=== PATIENT | female | born 2000 | race Two or more races ===

== ENCOUNTER 2025-04-25 18:15 | Emergency (ER) | payer MEDICAID, SELFPAY ==
[2025-04-25 18:16] VITALS: BMI 34.7
[2025-04-25 19:45] VITALS: BP 117/74; PULSE 98; RESP 16; TEMP 36.9; O2SAT 99
--- NOTE | 2025-04-25 19:48 | EDRME_ITS ---
Rapid Medical Screening Exam RME Arrival date/time: 04/25/25 18:15 Chief Complaint: Abdominal Pain Time Seen by Provider: 04/25/25 19:39 Vital signs: Vital Signs Temperature 98.4 F 04/25/25 19:45 Pulse Rate 98 04/25/25 19:45 Respiratory Rate 16 04/25/25 19:45 Blood Pressure 117/74 04/25/25 19:45 Pulse Oximetry (%) 99 04/25/25 19:45 Oxygen Delivery Method Room Air 04/25/25 19:45 Vital signs reviewed by provider: Yes RME Narrative: 24-year-old female presents to the ED with a complaint of pelvic pressure and pain as well as spotting of brown fluid that began today. She is 17 weeks . 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 She denies any dysuria or frequency. She denies any recent illness with fever, chills, cough, upper respiratory complaints, nausea or vomiting, diarrhea or constipation. I have greeted and performed a focused initial assessment of this patient. A comprehensive ED assessment and evaluation of the patient, analysis of all test results, and completion of the medical decision making process will be conducted by additional ED providers.
--- NOTE | 2025-04-25 19:50 | XR_ITS ---
Examination: Complete OB ultrasound greater than 14 weeks Date and time of exam: April 25, 2025 2013 hours INDICATIONS: Cramping, pelvic, vaginal bleeding today Findings: Viable intrauterine single fetus with single amniotic sac presentation breech Cardiac motion 158 BPM Placenta posterior grade 1 Umbilical cord insertion 3 vessel seen Amniotic fluid index adequate Cervix 3.8 cm Right ovary obscured by bowel gas Left ovary 4.6 cm. Composite estimated gestational age based on BPD, head circumference, abdominal circumference, femur length is 19 weeks 1 day Estimated weight 278 g. Survey of intracranial anatomy, spinal anatomy, abdominal anatomy, four-chamber heart performed with no abnormalities identified. Impression: Viable intrauterine gestation breech presentation Estimated gestational age is 19 weeks 1 day.
[2025-04-25 21:03] LABS: Collection Type, Urine Clean Catch
[2025-04-25 21:24] LABS: Bilirubin,Urine Negative (Negative); Blood,Urine Negative (Negative); Clarity,Urine Turbid (Clear/Hazy); Color,Urine Yellow (Lt Yel-Yel); Glucose, Urine Trace (Negative); Ketones,Urine Negative (Negative); Leukocyte Esterase,Urine Positive (Negative); Nitrite,Urine Negative (Negative); PH,Urine 6.5 (5.0-7.0); Protein,Urine Trace (Neg - Trace); RBC,Urine 5 /hpf (0-3); Specific Gravity,Urine 1.023 (1.001-1.035); Squamous Epithelial Cell,Urine 4 /hpf (0-5); WBC,Urine 13 /hpf (0-5)
[2025-04-25 21:25] LABS: Culture Indicated,Urine Yes
[2025-04-25 21:50] LABS: Basophils # (Auto) 0.1 Thou/mm3 (0.0-0.2); Basophils % (Auto) 1 % (0-2.5); Eosinophils % (Auto) 0 % (0-10); Hematocrit 41.1 % (36.0-46.0); Immature Granulocytes % (Auto) 0 % (0-0); Immature Granulocytes Auto 0.02 Thou/mm3 (0.00-0.00); Lymphocytes # (Auto) 2.1 Thou/mm3 (1.0-4.8); Lymphocytes % (Auto) 24 % (10-50); Mean Corpuscular HGB Conc 36.5 g/dl (31.0-37.0); Mean Corpuscular Hemoglobin 31.8 pg (25.0-35.0); Mean Corpuscular Volume 87 fL (80-100); Monocytes # (Auto) 0.5 Thou/mm3 (0.0-0.8); Monocytes % (Auto) 6 % (0-12); Neutrophils # (Auto) 6.2 Thou/mm3 (1.8-7.7); Neutrophils % (Auto) 69 % (37-80); Nucleated Red Blood Cell % 0 /100 WBC (0); Platelet Count 370 Thou/mm3 (140-440); RDW Standard Deviation 40.3 fL (36.4-46.3); Red Blood Count 4.72 Miln/mm3 (4.00-5.20); White Blood Count 8.9 Thou/mm3 (3.6-11.0)
[2025-04-25 22:10] LABS: Alanine Aminotransferase 20 U/L (10-49); Albumin, Serum 3.8 gm/dL (3.5-5.0); Albumin/Globulin Ratio 1.7 (1.2-2.2); Alkaline Phosphatase 57 U/L (46-116); Anion Gap 12 (7-16); BUN/Creatinine Ratio 17 Ratio (12-20); Bilirubin,Total 0.3 mg/dL (0.3-1.2); Blood Urea Nitrogen 10 mg/dL (9-23); Calcium 8.7 mg/dL (8.3-10.6); Calcium (Corrected) 8.9 mg/dL (8.5-10.1); Carbon Dioxide 23.7 mMol/L (20.0-31.0); Chloride 105 mMol/L (98-107); Creatinine (Component) 0.6 mg/dL (0.6-1.3); Estimated Creatinine Clearance 128.1 mL/min (>60); Globulin 2.2 gm/dL (2.3-3.5); Glucose 107 mg/dL (74-106); Osmolality,Calculated 280 (275-295); Potassium 3.6 mMol/L (3.4-5.1); Sodium 141 mMol/L (136-145); eGFR > 60 See Note
[2025-04-25 23:13] LABS: Beta HCG,Quantitative 17948 mIU/mL (<5.0)
--- NOTE | 2025-04-25 23:18 | PD.EDABDPN ---
ED Abdominal Pain RME/HPI General Chief Complaint: Abdominal Pain Stated complaint: ABD PAIN 17WKS PREG Time seen by provider: 04/25/25 19:39 Arrival date/time: 04/25/25 18:15 RME / HPI RME / HPI narrative: 24-year-old female presents to the ED with a complaint of pelvic pressure and pain as well as spotting of brown fluid that began today. She is 17 weeks . 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 She denies any dysuria or frequency. She denies any recent illness with fever, chills, cough, upper respiratory complaints, nausea or vomiting, diarrhea or constipation. I have greeted and performed a focused initial assessment of this patient. A comprehensive ED assessment and evaluation of the patient, analysis of all test results, and completion of the medical decision making process will be conducted by additional ED providers. Related Data Allergies Allergy/AdvReac Type Severity Reaction Status Date / Time No Known Allergies Allergy Verified 05/30/22 12:03 Review of Systems Review of Systems Systems Reviewed: All systems reviewed, normal except as documented Past Medical History Past Medical History CARDIAC: Negative Congestive Heart Failure RESPIRATORY: Negative Chronic Obstructive Pulmonary Disease (COPD) GENITOURINARY: Negative Renal Disease ENDOCRINE: Negative Diabetes Mellitus Type 1 or Diabetes Mellitus Type 2 Social History SMOKING STATUS: Never smoker ED Exam Narrative Physical exam: Alert and oriented 24-year-old female, no acute distress. Lungs are clear, regular rate and rhythm, abdomen is gravid (unable to determine fundal height), soft, mild lower pelvic tenderness, no CVA tenderness. Moves all extremities well. Course Course Course Narrative: CBC is normal, CMP is normal, urinalysis reveals turbid yellow urine with a specific gravity 1.023 with trace protein, trace glucose, negative nitrites, positive leukocyte esterase, 5 RBCs and 13 WBCs with no bacteria. OB ultrasound greater than 14 weeks reveals viable intrauterine gestation breech presentation. Estimated gestational age is 19 weeks 1 day, cardiac motion is 158. Amniotic fluid index adequate estimated weight 278 g. anatomy appears with no abnormalities. Orders Category Date Time Status US OB >= 14 weeks Fetus Stat Exams 04/25/25 19:50 Completed ABO/RH Type Stat Lab 04/25/25 20:51 Completed Beta HCG,Quantitative Stat Lab 04/25/25 20:51 Completed CBC Stat Lab 04/25/25 20:51 Completed CMP [Comprehensive Metabolic Panel] Stat Lab 04/25/25 20:51 Completed UA, C/S IF [Urinalysis, C/S if Indicated] Stat Lab 04/25/25 20:33 Completed Urine Culture Stat Lab 04/25/25 20:33 Received Vital Signs Vital signs: Vital Signs Temperature 98.4 F 04/25/25 19:45 Pulse Rate 98 04/25/25 19:45 Respiratory Rate 16 04/25/25 19:45 Blood Pressure 117/74 04/25/25 19:45 Pulse Oximetry (%) 99 04/25/25 19:45 Oxygen Delivery Method Room Air 04/25/25 19:45 Discharge Plan Plan Patient Disposition: HOME (Self Care) Discharge Disposition comment: Stable Prescriptions/Referrals Referrals: Luis Minor MD [Primary Care Provider] - In 1 week Problem List Clinical Impression: Threatened miscarriage Patient/Caregiver Discharge Instructions Education Materials: ED Possible Miscarriage ... Additional Instructions: Contact your [employer] BUSINESS ANALYST for [place] in the morning and schedule a follow-up appointment early this week. Return to the emergency department for any new or worsening symptoms. Print Language: Khmer Stand Alone Forms: Ivory Award Info., Patient Portal Info Letter PA/FLOR Supervising Physician ADRYAN/FLOR Supervising Physician: Dr. Reynolds
[2025-04-25 23:28] VITALS: BP 109/74; PULSE 64; RESP 17; RESP 18; TEMP 36.3; O2SAT 98
== END 2025-04-25 23:29 | disposition home or self-care (01) ==
PROVIDERS: Physician Assistant; Emergency Provider Emergency Medicine; PCP Family Medicine
DX: O20.0 Threatened abortion (principal); Z3A.19 19 weeks gestation of pregnancy
CPT/HCPCS: 36415; 76805; 80053; 81001; 84702; 85025; 86900; 86901; 87086; 99284

== ENCOUNTER 2025-08-24 03:24 | Observation (INO) | payer MEDICAID, SELFPAY ==
[2025-08-24] VITALS (22 sets, daily range): BP systolic 120; BP diastolic 81; PULSE 52–83; RESP 19–99; TEMP 37; O2SAT 94–100; BMI 38.7
[2025-08-24] MEDS: RINGERS LACTATED 1000 ML 1,000 ML 999 ML IV (04:06)
== END 2025-08-24 06:00 | disposition home or self-care (01) ==
PROVIDERS: Admitting Provider Specialist; Visit Provider Specialist
DX: O47.03 False labor before 37 completed weeks of gestation, third trimester (principal); O36.8130 Decreased fetal movements, third trimester, not applicable or unspecified; Z3A.36 36 weeks gestation of pregnancy
CPT/HCPCS: 59025; 59899; J7120

== ENCOUNTER 2025-08-31 17:03 | Observation (INO) | payer MEDICAID, SELFPAY ==
[2025-08-31 17:24] VITALS: BP 123/79; PULSE 74
[2025-08-31 17:42] VITALS: BP 123/79; PULSE 74; RESP 18; RESP 99; TEMP 36.8; BMI 35.5
[2025-08-31 17:53] VITALS: BP 122/83; PULSE 68
[2025-08-31 19:40] LABS: ROM Kit Exp Date# 04/44/28; ROM Kit Lot # 58106258; ROM Swab Mixed By: MARTB3; Rupture of Fetal Membranes Negative (Negative); Swb Mxed in Solvent 1 min? Yes
== END 2025-08-31 20:10 | disposition home or self-care (01) ==
PROVIDERS: Admitting Provider Specialist; Visit Provider Specialist
DX: O26.893 Other specified pregnancy related conditions, third trimester (principal); Z3A.37 37 weeks gestation of pregnancy; M54.50 Low back pain, unspecified
CPT/HCPCS: 59025; 59899; 84112

== ENCOUNTER 2025-09-01 22:49 | Observation (INO) | payer MEDICAID, SELFPAY ==
[2025-09-01] VITALS (11 sets, daily range): BP systolic 127; BP diastolic 87; PULSE 61–71; RESP 18–99; TEMP 37.1; O2SAT 98–100; BMI 36.7
[2025-09-02 00:01] VITALS: PULSE 62; O2SAT 100
[2025-09-02 00:06] VITALS: PULSE 64; O2SAT 99
[2025-09-02 00:11] VITALS: PULSE 62; O2SAT 100
[2025-09-02 00:16] VITALS: PULSE 60; O2SAT 100
[2025-09-02 00:21] VITALS: PULSE 59; O2SAT 99
== END 2025-09-02 00:37 | disposition home or self-care (01) ==
PROVIDERS: Admitting Provider Specialist; Visit Provider Specialist
DX: Z34.03 Encounter for supervision of normal first pregnancy, third trimester (principal); Z3A.37 37 weeks gestation of pregnancy
CPT/HCPCS: 59899

== ENCOUNTER 2025-09-02 16:55 | Inpatient (IN) | payer MEDICAID, SELFPAY ==
[2025-09-02] VITALS (78 sets, daily range): BP systolic 106–162; BP diastolic 63–122; PULSE 64–126; RESP 16–99; TEMP 36.7; O2SAT 90–100; BMI 35.9
[2025-09-02 18:46] LABS: Basophils # (Auto) 0.0 Thou/mm3 (0.0-0.2); Basophils % (Auto) 0 % (0-2.5); Eosinophils # (Auto) 0.0 Thou/mm3 (0.0-0.5); Eosinophils % (Auto) 0 % (0-10); Hematocrit 33.6 % (36.0-46.0); Hemoglobin 11.3 g/dL (12.0-16.0); Immature Granulocytes Auto 0.04 Thou/mm3 (0.00-0.00); Lymphocytes # (Auto) 1.4 Thou/mm3 (1.0-4.8); Lymphocytes % (Auto) 17 % (10-50); Mean Corpuscular HGB Conc 33.6 g/dl (31.0-37.0); Mean Corpuscular Hemoglobin 28.1 pg (25.0-35.0); Mean Corpuscular Volume 84 fL (80-100); Monocytes # (Auto) 0.3 Thou/mm3 (0.0-0.8); Monocytes % (Auto) 4 % (0-12); Neutrophils # (Auto) 6.9 Thou/mm3 (1.8-7.7); Neutrophils % (Auto) 79 % (37-80); Nucleated Red Blood Cell # 0.00 Thou/mm3 (0.00-0.00); Nucleated Red Blood Cell % 0 /100 WBC (0); Platelet Count 213 Thou/mm3 (140-440); RDW Standard Deviation 37.7 fL (36.4-46.3); Red Blood Count 4.02 Miln/mm3 (4.00-5.20); White Blood Count 8.7 Thou/mm3 (3.6-11.0)
--- NOTE | 2025-09-02 18:46 | PD.LDHP ---
Documentation for date of: 09/02/25 OB Labor/Induct. HPI History of Present Illness : 1 Para: 0 Term pregnancies: 0 pregnancies: 0 Living children: 0 History of Abortions: Spontaneous and Elective: 0 History of Vaginal deliveries: 0 History of sections: No History of : No LUCILA: 09/19/25 History of present illness: H and P dictated STAT in Nuance #9. History of Present Adequate Care: Yes Past Medical History Surgical History SURGICAL: Negative Section Meds Home Medications and Allergies Home Medications ?Medication ?Instructions ?Recorded ?Confirmed ?Type ferrous sulfate 325 mg (65 mg 325 mg PO DAILY 08/24/25 09/02/25 History iron) tablet vitamins with calcium 1 tab PO Q24H 08/24/25 09/02/25 History no.72-iron 27 mg-folic acid 1 mg tablet ( Plus (calcium carbonate)) Allergies Allergy/AdvReac Type Severity Reaction Status Date / Time No Known Allergies Allergy Verified 09/02/25 19:29 OB Exam Physical Exam Vital signs: Temp Pulse Resp BP Pulse Ox 98.0 F 105 H 17 127/87 H 100 09/02/25 17:59 09/02/25 17:59 09/02/25 17:59 09/02/25 17:59 09/02/25 18:35 OB Results Labs 09/02/25 18:00
[2025-09-02] MEDS: Ampicillin Inj 2,000 MG in SODIUM CHLORIDE 0.9% (POP) 100 ML 200 MG IV (20:00)
[2025-09-02 22:06] LABS: Syphilis Nonreactive (Nonreactive)
[2025-09-02] MEDS: ceFAZolin/D5W 2 GM IV 2 GM/100 ML BAG IV (23:06)
[2025-09-02] MEDS: FAMOTIDINE INJ 10 MG/ML VIAL 2 ML 20 MG IV (23:06)
--- NOTE | 2025-09-02 23:07 | PD.LDPN ---
Documentation for date of: 09/02/25 OB Labor Progress Note Pain Control Comments: Epidural Pelvic Exam Dilation (cm): 5 Effacement (%): 90 station: -1 Amniotic membrane status: Ruptured Contractions Monitor mode: External Contraction frequency: 5-8 Contraction intensity: Mild Status status: Category ll Comments: Recurrent severe variable and prolonged decelerations with minimal variability Assessment and Plan Comments: Delivery. Informed Consent was Obtained. Pt made aware of the risks, complications, alternatives and benefits of the proposed procedure and she agrees. History of Present Illness HPI Called by RN to evaluate tracing.
[2025-09-02] MEDS: METOCLOPRAMIDE INJ 5 MG/ML VIAL 2 ML 10 MG IVP (23:09)
[2025-09-02] MEDS: RINGERS LACTATED 1000 ML 1,000 ML 125 ML IV (23:11)
[2025-09-03] VITALS (18 sets, daily range): BP systolic 84–146; BP diastolic 70–87; PULSE 60–88; RESP 12–19; TEMP 36.8–37.2; O2SAT 97–100
[2025-09-03] MEDS: HYDROmorphone 1 MG/ML PCA SYRINGE 30ML 30 MG IV (01:59)
[2025-09-03 05:52] LABS: Basophils # (Auto) 0.0 Thou/mm3 (0.0-0.2); Basophils % (Auto) 0 % (0-2.5); Eosinophils # (Auto) 0.0 Thou/mm3 (0.0-0.5); Eosinophils % (Auto) 0 % (0-10); Hematocrit 28.8 % (36.0-46.0); Hemoglobin 9.6 g/dL (12.0-16.0); Immature Granulocytes Auto 0.04 Thou/mm3 (0.00-0.00); Lymphocytes # (Auto) 1.8 Thou/mm3 (1.0-4.8); Lymphocytes % (Auto) 14 % (10-50); Mean Corpuscular HGB Conc 33.3 g/dl (31.0-37.0); Mean Corpuscular Hemoglobin 28.2 pg (25.0-35.0); Mean Corpuscular Volume 85 fL (80-100); Monocytes # (Auto) 0.5 Thou/mm3 (0.0-0.8); Monocytes % (Auto) 4 % (0-12); Neutrophils # (Auto) 10.2 Thou/mm3 (1.8-7.7); Neutrophils % (Auto) 81 % (37-80); Nucleated Red Blood Cell # 0.00 Thou/mm3 (0.00-0.00); Nucleated Red Blood Cell % 0 /100 WBC (0); Platelet Count 188 Thou/mm3 (140-440); RDW Standard Deviation 38.5 fL (36.4-46.3); Red Blood Count 3.41 Miln/mm3 (4.00-5.20); White Blood Count 12.5 Thou/mm3 (3.6-11.0)
[2025-09-03] MEDS: DOCUSATE SOD 100 MG CAPSULE PO (08:44)
[2025-09-03] MEDS: ENOXAPARIN SOD INJ 40 MG/0.4 ML SYRINGE SC (08:44)
--- NOTE | 2025-09-03 09:10 | OBDSUM_ITS ---
Data ([facility]) Data Hx Section: No : 1 Term: 0 : 0 Livin Abortions: Spontaneous & Theraputic: 0 Delivery Data ([facility]) Labor Data Initiation of labor: Augmentation Induction/Augmentation Agent: None ROM date: 09/02/25 ROM time: 18:20 Amniotic membrane rupture type: Spontaneous Amniotic fluid description: Clear Delivery Data EDC: 09/19/25 EDC calculated by:: LMP/early US confirmation delivery date: 09/02/25 delivery time: 23:32 Gestational age (weeks): 37 Gestational age (days): 4 Placenta delivery date: 09/02/25 Placenta delivery time: 23:33 Delivered by: Geiling Delivery nurse: Rohini Fierro nurse: Danelle [employer] Test Engineer at delivery: No Delivery Method Delivery method: Low Transverse Presentation: Vertex position: OP Anesthesia Type Anesthesia Type: Spinal and Epidural Placenta Placenta delivery description: Manual Removal Cord blood sent to lab: Yes cord blood collection: Cord Blood Type, Arterial Cord Blood Gas and Venous Cord Blood Gas Episiotomy Episiotomy description: None EBL Estimated blood loss (ml): 500 Umbilical Cord cord description: 3 Vessels Complications Complications: None Data ([place]) [place] Data [place]'s gender: Male Identification band number: [id number] weight (gms): 5 lb 7.832 oz Weight (pounds): 5 lbs and 7.8 ozs length: 19.49 in 1 minute: 8 5 minutes: 9
--- NOTE | 2025-09-03 09:10 | ESOP_ITS ---
Operative Note - PUBLIC ADDRESS SERVICER Procedure Date of procedure: 09/02/25 Procedure Performed: Primary low-transverse section via Pfannenstiel skin incision Indication: Intrauterine at 37 weeks and 4 days Active labor Category 2 tracing trending toward category 3 Gestational diabetes mellitus class A1 Pre-Op diagnosis: Intrauterine at 37 weeks and 4 days Active labor Category 2 tracing trending toward category 3 Gestational diabetes mellitus class A1 Post-Op diagnosis: Intrauterine at 37 weeks and 4 days Active labor Category 2 tracing trending toward category 3 Gestational diabetes mellitus class A1 Anesthesia type: Spinal Procedure description: After proper informed consent was obtained and the patient was made aware of the risks, complications, alternatives and benefits of the proposed procedure she w as taken to the operating room where she underwent induction of spinal anesthesia. She was prepped and draped in the usual sterile fashion. A timeout was performed.? A Pfannenstiel skin incision was made with the scalpel and carried through to the underlying layer of fascia with the Bovie. The fascia was nicked in the midline incision and the incision was extended bilaterally with the Bovie. The inferior aspect of the fascial incision was grasped with Phan clamps elevated and the underlying rectus muscle dissected off with the Bovie. The superior aspect the fascial incision was grasped with Pahn clamps elevated and the underlying rectus muscle dissected off with the Bovie. The rectus muscles were in the midline. The peritoneum was grasped between 2 Aggarwal clamps and entered sharply with the Metzenbaum scissors. The peritoneum was extended superiorly and inferiorly with good visualization of the bladder. The vesicouterine peritoneum was incised transversely and the bladder flap created digitally. A Draper blade was inserted. A low transverse incision was made in the uterus with a scapel and the incision was extended digitally. The infant's head delivered and the mouth and nose were suctioned with the bulb suction. The shoulder and body delivered atraumatically. The cord was clamped after 30 second delayed cord clamping and the cord was cut.? The male was handed off to the waiting Pediatric staff, cord blood was collected for lab testing. The placenta was removed complete and intact. The uterus was exteriorized and cleared of all clots and debris. The uterine incision was closed with #1-0 chromic catgut suture in a running interlocking fashion. A second layer of the same suture was used to imbricate the first layer and obtain excellent hemostasis. The vesicouterine peritoneum was closed with 2-0 chromic catgut suture in a running fashion. The firm uterus was returned to the abdomen. The gutters were cleared of all clots and debris. The peritoneum was closed with 0 chromic catgut suture in running fashion. The rectus muscle was closed with 0 chromic catgut suture. The fascia was closed with 0 Vicryl beginning at each angle and ending in the center in a running fashion. The subcutaneous tissue was irrigated with warmed normal saline solution and found to be hemostatic. The subcutaneous tissue was closed with 2-0 chromic catgut suture in a running fashion. The skin was closed with 4-0 Monocryl. A Dermabond Prineo dressing was applied and a sterile pressure dressing was applied.? She tolerated the procedure well. Counts were correct. I discussed with the patient the nature of her condition, intraoperative findings and expectation for recovery all? questions answered. Specimen: other (Placenta) Estimated blood loss (ml): 500 Findings: Live male infant Clear amniotic fluid Apgars 8 / 9 Cephalic Placenta removed complete and intact Uterus ovaries and fallopian tubes grossly within normal limits Complications: none Surgical staff Operation Date: 09/02/25 23:45 Case Staff DATA WAREHOUSE MANAGER: Marc Murdock RN First Assistant: Susannah Babb Diagnosis Problem List Completed Was Problem List Reviewed/Reconciled?: Yes
--- NOTE | 2025-09-03 09:10 | PD.LDPPPRG ---
Subjective Subjective Interval history: Patient denies any primary complaint.. Lentz catheter which was removed. And she has yet to void. She denies any excessive vaginal bleeding or dizziness or lightheadedness.. She denies any chest pain palpitation shortness of breath or lower extremity pain. She is tolerating a regular diet. She is passing flatus. Exam Vital Signs Temp Pulse Resp BP Pulse Ox O2 Del Method 98.3 F 73 16 116/80 100 Room Air 09/03/25 04:00 09/03/25 04:00 09/03/25 04:56 09/03/25 04:00 09/03/25 04:00 09/03/25 04:00 Routine Respiratory Exam Comments: Clear to auscultation bilaterally Routine Cardiovascular Exam Comments: Regular rate and rhythm Routine Abdominal Exam Comments: Dressing dry and intact. Nondistended. Routine Extremities Exam Comments: Nontender or edema. Objective Labs 09/03/25 05:11 Labs: Laboratory Results - last 24 hr 09/02/25 09/03/25 18:00 05:11 WBC 8.7 12.5 H D RBC 4.02 3.41 L Hgb 11.3 L 9.6 L Hct 33.6 L 28.8 L MCV 84 85 MCH 28.1 28.2 MCHC 33.6 33.3 RDW Std Deviation 37.7 38.5 Plt Count 213 188 Neut % (Auto) 79 81 H Lymph % (Auto) 17 14 Kershaw % (Auto) 4 4 Eos % (Auto) 0 0 Baso % (Auto) 0 0 Neut # (Auto) 6.9 10.2 H Lymph # (Auto) 1.4 1.8 Kershaw # (Auto) 0.3 0.5 Eos # (Auto) 0.0 0.0 Baso # (Auto) 0.0 0.0 Immature Gran # (Auto) 0.04 H 0.04 H Absolute Nucleated RBC 0.00 0.00 Immature Gran % 1 H 0 Nucleated RBC % 0 0 Syphilis Serology Nonreactive Blood Type A Positive Antibody Screen NEGATIVE Blood Bank Wristband ID Yes Impressions Impression: Postop day #1 status post delivery DC IV Encourage ambulation Remove dressing support Possible discharge home tomorrow Assessment & Plan Time Spent With Patient Time: Total time spent is greater than 50% in coordination of care (as documented) at patient's floor/unit and/or counseling patient:
[2025-09-03] MEDS: CEFAZOLIN IV ×2 (13:32→21:22)
[2025-09-03] MEDS: SODIUM CHLORIDE 0.9% IV ×2 (13:32→21:22)
[2025-09-03] MEDS: HYDROcodone/APAP 5/325 TABLET 2 TAB PO (13:33)
[2025-09-03] MEDS: IBUPROFEN TAB 400 MG TABLET 800 MG PO (16:09)
[2025-09-04] MEDS: IBUPROFEN TAB 400 MG TABLET 800 MG PO (02:19)
[2025-09-04 04:00] VITALS: BP 116/76; PULSE 74; RESP 19; TEMP 37.1; O2SAT 98
[2025-09-04] MEDS: CEFAZOLIN IV ×2 (07:51→14:13)
[2025-09-04] MEDS: SODIUM CHLORIDE 0.9% IV ×2 (07:51→14:13)
[2025-09-04 08:00] VITALS: BP 121/80; PULSE 67; RESP 16; TEMP 37; O2SAT 98
[2025-09-04] MEDS: DOCUSATE SOD 100 MG CAPSULE PO (08:15)
[2025-09-04] MEDS: ENOXAPARIN SOD INJ 40 MG/0.4 ML SYRINGE SC (08:15)
--- NOTE | 2025-09-04 09:03 | ESPR_ITS ---
RE: TAINA NEGRON : 2000 DATE OF SERVICE: 09/04/2025 Postop day number 2. The patient denies any problem or complaint. She is voiding. She is ambulating. She is tolerating regular diet. She is passing flatus. She denies any excessive vaginal bleeding. She denies any dizziness or lightheadedness. She denies any chest pain, palpitations, shortness of breath or lower extremity pain. Blood pressure 116/76, heart rate 74, respirations 19, temperature is 98.7, pulse ox is 98% on room air. Lungs clear to auscultation bilaterally. Heart regular rate and rhythm. Abdomen, incision clear and intact. Fundus is firm. Extremities nontender. ASSESSMENT: Postoperative day number 2, status post delivery. PLAN: Discharge home. Discharge instructions given. Follow up in the office in 1 week. DT: 08:11:42 TT: 09:02:00 Ref: [id number] - TID: [id number]
[2025-09-04 12:04] VITALS: BP 136/86; PULSE 79; RESP 16; TEMP 37.3
[2025-09-04] MEDS: HYDROcodone/APAP 5/325 TABLET 1 TAB PO (15:14)
[2025-09-04 20:00] VITALS: BP 124/82; PULSE 83; RESP 18; TEMP 36.8; O2SAT 100
[2025-09-04] MEDS: HYDROcodone/APAP 5/325 TABLET 2 TAB PO (20:22)
== END 2025-09-04 23:40 | disposition home or self-care (01) | DRG 540 ==
LOC: S4SX 19:09 → S4NX 23:45
PROVIDERS: Admitting Provider Specialist; PCP General Practice; Visit Provider Specialist
PROC: 10D00Z1 Extraction of Products of Conception, Low, Open Approach (ICD-10-PCS; CPT 59514; principal; 2025-09-02 23:30)
DX: O24.420 Gestational diabetes mellitus in childbirth, diet controlled (principal); Z3A.37 37 weeks gestation of pregnancy; Z37.0 Single live birth; O76 Abnormality in fetal heart rate and rhythm complicating labor and delivery
CPT/HCPCS: 36415; 59025; 59409; 85025; 86780; 86850; 86900; 86901; 94762; A4217; A4314; A4649; J0290; J0689; J0690; J1650; J2175; J2371; J2405; J2590; J2765; J2795; J3010; J3490; J7050; J7120; A9270